=== PATIENT | male | born 1985 | race Two or more races ===

== ENCOUNTER 2018-02-22 23:08 | Emergency (ER) | payer SELFPAY ==
--- NOTE | 2018-02-22 23:55 | EDM.PDOC ---
ED HPI GENERAL MEDICAL PROBLEM - General Chief Complaint: Genitourinary Problem Stated Complaint: LT TESTICAL IN PAIN Time Seen by Provider: 02/22/18 23:37 Source of Information: Reports: Patient History Limitations: Reports: No Limitations - History of Present Illness INITIAL COMMENTS - FREE TEXT/NARRATIVE: HISTORY AND PHYSICAL: History of present illness: 33-year-old male presenting with chief complaint of left testicular pain 1 week. Patient states that one week ago he began to have some left-sided testicular pain that was intermittent. He denies any dysuria, hematuria, penile drainage. Today the pain became more intense and he describes it as sharp and 8/10. Believes that there is some mild swelling to the left testicle. Denies ever having this happen before. Has started a new relationship and had one episode of nonproductive sex. Also mentions that 2 months ago he had some left lower quadrant type of pain that was intermittent as well and worse with running. There is not increase size to the left testical as compared to the right. Not raised as compared to the right. Mild left inguinal hernia noted. No lesions or other abnormalities noted on testicular and penile exam UA unremarkable. Review of systems: As per history of present illness and below otherwise all systems reviewed and negative. Past medical history: As per history of present illness and as reviewed below otherwise noncontributory. Surgical history: As per history of present illness and as reviewed below otherwise noncontributory. Social history: No reported history of drug or alcohol abuse. Family history: As per history of present illness and as reviewed below otherwise noncontributory. Physical exam: HEENT: Atraumatic, normocephalic, pupils reactive, negative for conjunctival pallor or scleral icterus, mucous membranes moist, throat clear, neck supple, nontender, trachea midline. Lungs: Clear to auscultation, breath sounds equal bilaterally, chest nontender. Heart: S1S2, regular, negative for clicks, rubs, or JVD. Abdomen: Soft, nondistended, nontender. Negative for masses or hepatosplenomegaly. Negative for costovertebral tenderness. Pelvis: Stable nontender. Genitourinary: See above. Rectal: Deferred. Extremities: Atraumatic, negative for cords or calf pain. Neurovascular unremarkable. Neuro: Awake, alert, oriented. Cranial nerves II through XII unremarkable. Cerebellum unremarkable. Motor and sensory unremarkable throughout. Exam nonfocal. Diagnostics: Testicular US, UA, chlamydia/gonnarhea Therapeutics: Toradol 60 IM Impression: Left testicular pain Left inguinal hernia Plan: Ultrasound of the testicle shows small hypoechoic focus in the left inguinal region measuring 8 mm possibly representing a small lymph node or fluid collection. They did recommended a follow-up in 2-3 months. Testes were unremarkable. I did communicate this with the patient and talked to him about possible left inguinal hernia. He is going to follow-up with general surgery and I gave him that information. Definitive disposition and diagnosis as appropriate pending reevaluation and review of above. testicle Pain Score (Numeric/FACES): 8 - Related Data Allergies Allergy/AdvReac Type Severity Reaction Status Date / Time No Known Allergies Allergy Verified 02/22/18 23:28 Home Meds: Home Meds Cetirizine [ZyrTEC] 1 tab PO DAILY 02/22/18 [History] Past Medical History HEENT History: Reports: Sinusitis - Past Surgical History HEENT Surgical History: Reports: Naso-Sinus Surgery Social & Family History - Family History Family Medical History: Noncontributory - Tobacco Use Smoking Status *Q: Former Smoker Used Tobacco, but Quit: Yes Month/Year Tobacco Last Used: 1 - Recreational Drug Use Recreational Drug Use: Yes Drug Use in Last 12 Months: Yes Recreational Drug Type: Reports: Marijuana/Hashish ED ROS GENERAL - Review of Systems Review Of Systems: ROS reveals no pertinent complaints other than HPI. ED EXAM, GENERAL - Physical Exam Exam: See Below Course - Vital Signs Last Recorded V/S: Last Vital Signs Temp 97.2 F 02/22/18 23:08 Pulse 81 02/22/18 23:08 Resp 18 02/22/18 23:08 BP 137/78 02/22/18 23:08 Pulse Ox 96 02/22/18 23:08 - Orders/Labs/Meds Orders: Active Orders 24 hr Category Date Time Status Scrotal Duplex Ltd [US] Routine Exams 02/23/18 00:14 Taken Testicular US [Scrotum and Contents] [US] Stat Exams 02/23/18 00:01 Taken CHLAMYDIA AND GONORRHEA BY [facility]MA Stat Lab 02/23/18 00:41 Received UA W/MICROSCOPIC [URIN] Stat Lab 02/23/18 00:00 Ordered Labs: Laboratory Tests 02/23/18 Range/Units 00:00 Urine Color YELLOW Urine Appearance CLEAR Urine pH 6.0 (5.0-8.0) Ur Specific [place] 1.025 (1.001-1.035) Urine Protein NEGATIVE (NEGATIVE) mg/dL Urine Glucose (UA) NEGATIVE (NEGATIVE) mg/dL Urine Ketones NEGATIVE (NEGATIVE) mg/dL Urine Occult Blood NEGATIVE (NEGATIVE) Urine Nitrite NEGATIVE (NEGATIVE) Urine Bilirubin NEGATIVE (NEGATIVE) Urine Urobilinogen 0.2 (<2.0) EU/dL Ur Leukocyte Esterase NEGATIVE (NEGATIVE) Urine RBC NONE SEEN (0-2/HPF) Urine WBC 0-1 (0-5/HPF) Ur Epithelial Cells NOT SEEN (NONE-FEW) Urine Bacteria RARE (NEGATIVE) Meds: Medications Discontinued Medications Generic Name Dose Route Start Last Admin Trade Name Freq PRN Reason Stop Dose Admin Ketorolac Tromethamine 60 mg 02/23/18 00:08 02/23/18 00:20 Toradol IM 02/23/18 00:09 60 mg ONETIME ONE Administration Departure - Departure Time of Disposition: 01:36 Disposition: Home, Self-Care 01 Condition: Good Clinical Impression: Left inguinal hernia, Pain in left testicle - Discharge Information Referrals: PCP,None [Primary Care Provider] - Forms: ED Department Discharge Additional Instructions: My general discharge The following information is given to patients seen in the emergency department who are being discharged to home. This information is to outline your options for follow-up care. We provide all patients seen in our emergency department with a follow-up referral. The need for follow-up, as well as the timing and circumstances, are variable depending upon the specifics of your emergency department visit. If you don't have a primary care physician on staff, we will provide you with a referral. We always advise you to contact your personal physician following an emergency department visit to inform them of the circumstance of the visit and for follow-up with them and/or the need for any referrals to a consulting specialist. The emergency department will also refer you to a specialist when appropriate. This referral assures that you have the opportunity for follow-up care with a specialist. All of these measure are taken in an effort to provide you with optimal care, which includes your follow-up. Under all circumstances we always encourage you to contact your private physician who remains a resource for coordinating your care. When calling for follow-up care, please make the office aware that this follow-up is from your recent emergency room visit. If for any reason you are refused follow-up, please contact the [facility] Emergency Department at and asked to speak to the emergency department charge nurse. My General Surgery [facility] - General Surgery Professional Building [address] [place] [address], [address] [place] [address] Please call number above to schedule appointment with general surgery. Be sure to tell them that you were in the emergency room and they wish for you to be evaluated Return to the emergency department if any new or worsening symptoms as we discussed. - My Orders Last 24 Hours: My Active Orders 02/23/18 00:00 UA W/MICROSCOPIC [URIN] Stat 02/23/18 00:01 Testicular US [Scrotum and Contents] [US] Stat 02/23/18 00:14 Scrotal Duplex Ltd [US] Routine 02/23/18 00:41 CHLAMYDIA AND GONORRHEA BY TMA Stat - Assessment/Plan Last 24 Hours: My Active Orders 02/23/18 00:00 UA W/MICROSCOPIC [URIN] Stat 02/23/18 00:01 Testicular US [Scrotum and Contents] [US] Stat 02/23/18 00:14 Scrotal Duplex Ltd [US] Routine 02/23/18 00:41 CHLAMYDIA AND GONORRHEA BY [facility]MA Stat
[2018-02-23] MEDS ORDERED: Ketorolac 60 MG/2 ML SDV IM ONE (00:08)
--- NOTE | 2018-02-23 14:29 | US ---
EXAM DATE: 02/22/18 PATIENT'S AGE: 33 Patient: SHANNAN GONZALEZ Facility: [place], [place] Site . Site : 1985 Study: US Testicle [id number]/14/2018 12:51:04 AM Ordering Physician: Clement Milian Final Report: INDICATION: Left testicular pain TECHNIQUE: Ultrasound scrotum and contents. Real-time garcia scale sonographic images with spectral and color Doppler imaging of the testicles were obtained. COMPARISON: None FINDINGS: Right testis: 4.2 x 2.8 x 2.5 cm. The right testis is appearance and echotexture. Normal arterial and venous blood flow seen in the right testis. Left testis: 3.9 x 2.9 x 2.8 cm. The left testis is unremarkable in appearance and echotexture. Normal arterial and venous blood flow seen in the left testis. Epididymis: The epididymis are unremarkable in size and echogenicity and have normal blood flow. Soft tissue: No significant hydrocele or varicocele noted. No adenopathy is seen. A small hypoechoic focus is seen in the left inguinal region measuring 8 mm. IMPRESSION: 1. A small hypoechoic focus is seen in the left inguinal region measuring 8 mm. This may represent a small lymph node or fluid collection. Follow-up imaging in 2-3 months may be helpful to document stability or resolution. Dictated by Joce Cash MD @ 02/23/2018 12:55:00 AM Dictated by: Joce Cash MD @ 02/23/2018 00:55:03 (Electronic Signature) Report Signed by Proxy. JEFRY
--- NOTE | 2018-02-23 14:30 | US ---
EXAM DATE: 02/22/18 PATIENT'S AGE: 33 Patient: SHANNAN GONZALEZ Facility: [place], [place] Site . Site : 1985 Study: US Testicle [id number]/14/2018 12:51:04 AM Ordering Physician: Clement Milian Final Report: INDICATION: Left testicular pain TECHNIQUE: Ultrasound scrotum and contents. Real-time garcia scale sonographic images with spectral and color Doppler imaging of the testicles were obtained. COMPARISON: None FINDINGS: Right testis: 4.2 x 2.8 x 2.5 cm. The right testis is appearance and echotexture. Normal arterial and venous blood flow seen in the right testis. Left testis: 3.9 x 2.9 x 2.8 cm. The left testis is unremarkable in appearance and echotexture. Normal arterial and venous blood flow seen in the left testis. Epididymis: The epididymis are unremarkable in size and echogenicity and have normal blood flow. Soft tissue: No significant hydrocele or varicocele noted. No adenopathy is seen. A small hypoechoic focus is seen in the left inguinal region measuring 8 mm. IMPRESSION: 1. A small hypoechoic focus is seen in the left inguinal region measuring 8 mm. This may represent a small lymph node or fluid collection. Follow-up imaging in 2-3 months may be helpful to document stability or resolution. Dictated by Joce Cash MD @ 02/23/2018 12:55:00 AM Dictated by: Joce Cash MD @ 02/23/2018 00:55:03 (Electronic Signature) Report Signed by Proxy. JEFRY
== END 2018-02-23 01:46 | disposition home or self-care (01) ==
LOC: MW.ED 23:08
DX: N50.812 Left testicular pain (principal); K40.90 Unilateral inguinal hernia, without obstruction or gangrene, not specified as recurrent; Z87.891 Personal history of nicotine dependence
CPT/HCPCS: 76870; 81001; 87491; 87591; 93976; 96372; 99284; J1885; 99283